=== PATIENT | male | born 1950 | race Caucasian/White ===

== ENCOUNTER 2017-09-17 09:24 | Emergency (ER) | payer OTHER ==
[~2017-09-17] VITALS: Ht 172.7 cm; Wt 80.7 kg
[~2017-09-17 09:24] MED LIST: ASPIRIN; LISINOPRIL; LOVASTATIN; PLAVIX; TOPROL XL; ZETIA
[2017-09-17] MEDS ORDERED: ASPI-1471 PO (09:39)
[2017-09-17] MEDS ORDERED: GLUC100026 PO (09:39)
[2017-09-17] MEDS ORDERED: PANT40TA65 PO (09:39)
[2017-09-17] MEDS ORDERED: ROSU5TAB8 PO (09:39)
[2017-09-17] MEDS ORDERED: POTA10CA40 PO (09:39)
[2017-09-17] MEDS ORDERED: SODI325T7 PO (09:39)
[2017-09-17] MEDS ORDERED: LR(*) 1000 ML BAG 1,000 ML IV ONE (10:18)
--- NOTE | 2017-09-17 10:18 | ER Report ---
History and Physical Time Seen By MD: 10:11 Hx. of Stated Complaint: PT REPORTS VOMITING SINCE 0300 THIS MORNING, REPORTS WEAKNESS, UNEASY STOMACH HPI/ROS CHIEF COMPLAINT: vomiting x2 HISTORY OF PRESENT ILLNESS: Patient is a 67-year-old male who presents emergency department after having 2 episodes of severe nausea followed by vomiting early this morning. 1st episode occurred right around 3 AM patient was out smoking a cigarette when he developed severe nausea sweating and vomiting. He denies any chest pain or shortness of breath. He had a recurring episode around 7 AM and currently he no longer nauseous and has no symptoms. He came to the emergency department at the behest of his who wanted him evaluated. REVIEW OF SYSTEMS: Constitutional: No fever, no chills. Eyes: No discharge. ENT: No sore throat. Cardiovascular: No chest pain, no palpitations. Respiratory: No cough, no shortness of breath. Gastrointestinal: No abdominal pain, nausea with vomiting no diarrhea Genitourinary: No hematuria. Musculoskeletal: No back pain. Skin: No rashes. Neurological: No headache. Allergies: Coded Allergies: codeine (Verified Allergy, Intermediate, RASH, 09/17/17) Home Meds Reported Medications Glucosamine Sulfate 2KCL (GLUCOSAMINE) 1,000 Mg Tablet, 1000 MG PO BID 09/17/17 Rosuvastatin Calcium (CRESTOR) 5 Mg Tablet, 5 MG PO QDAY 09/17/17 Pantoprazole Sodium (PANTOPRAZOLE SODIUM) 40 Mg Tablet.dr, 40 MG PO QDAY, TAB.SR 09/17/17 Sodium Bicarbonate (SODIUM BICARBONATE) 325 Mg Tablet, 325 MG PO TID 09/17/17 Potassium Chloride (POTASSIUM CHLORIDE) 10 Meq Capsule.er, 10 MEQ PO BID 09/17/17 Aspirin (ASPIR 81) 81 Mg Tablet.dr, 81 MG PO QDAY, TAB 09/17/17 Discontinued Reported Medications [Lovastatin] No Conflict Check 10/31/07 [Zetia] No Conflict Check 10/31/07 [Aspirin] No Conflict Check STOPPED PREOP 10/31/07 [Lisinopril] No Conflict Check 10/31/07 [Toprol Xl] No Conflict Check 10/31/07 [Plavix] No Conflict Check STOPPED PREOP 10/31/07 Past Medical/Surgical History Past medical history significant for hyper cholesterolemia, history gastroesophageal reflux disease; history of low potassium, history of OR in 2004 Smoking Status: Current: Every Day Smoker Constitutional Vital Sign - Last 24 Hours 09/17/17 09/17/17 09/17/17 09/17/17 09:25 09:31 09:39 09:54 Temp 98.8 Pulse 103 104 89 Resp 16 B/P (MAP) 120/94 120/94 (103) Pulse Ox 93 93 93 O2 Delivery Room Air 09/17/17 09/17/17 09/17/17 09/17/17 10:00 10:09 10:24 10:30 Pulse 100 102 B/P (MAP) 112/66 (81) 118/69 (85) Pulse Ox 92 92 09/17/17 09/17/17 09/17/17 09/17/17 10:39 10:54 11:00 11:09 Pulse 101 102 104 B/P (MAP) 113/60 (77) Pulse Ox 89 90 88 Intake and Output 09/17/17 09/17/17 09/18/17 15:00 23:00 07:00 Intake Total 1000 ml Balance 1000 ml Physical Exam General/Constitutional: Patient is awake, alert, nontoxic and in no acute respiratory distress. Head: Normocephalic and atraumatic. Eyes: Conjunctival clear, Pupils are equal and reactive to light. Extraocular muscles are intact and symmetrical. Sclera are clear and anicteric. Ears:External canals are clear. Tympanic membranes are clear with normal landmarks and light reflex. Nares: No rhinorrhea or bleeding. Turbinates are pink and moist. Oropharyngeal: Mucous membranes are moist. There is no pharyngeal erythema or exudate. There are no palatal petechiae. Uvula is midline and symmetrical. Neck: Supple, no adenopathy. Cardiovascular: Heart is regular rate and rhythm without audible murmurs, rubs or gallops. Pulmonary: Lungs are clear to auscultation bilaterally. There are no wheezes, rales, or rhonchi. Chest rise is symmetrical Abdomen: Soft, nontender, no guarding or peritoneal signs. Extremities: No gross deformities, No peripheral cyanosis. Able to move all 4 extremities. Neuro: Alert and oriented X3, Skin: No rashes, skin is warm dry and well perfused. Medical Decision Making Data Points Result Diagram: 09/17/1741 09/17/1741 Laboratory Hematology Test 09/17/17 00:00 09/17/17 09:41 Troponin I < 0.012 ng/ml Red Blood Count 5.14 M/uL (4.00-5.60) Mean Corpuscular Volume 93.7 fL (80.0-96.0) Mean Corpuscular Hemoglobin 32.0 pg (26.0-33.0) Mean Corpuscular Hemoglobin Concent 34.1 g/dL (32.0-36.0) Red Cell Distribution Width 14.6 % (11.5-14.5) Mean Platelet Volume 8.9 fL (7.2-11.1) Neutrophils (%) (Auto) 95.7 % (39.4-72.5) Lymphocytes (%) (Auto) 1.0 % (17.6-49.6) Monocytes (%) (Auto) 2.4 % (4.1-12.4) Eosinophils (%) (Auto) 0.4 % (0.4-6.7) Basophils (%) (Auto) 0.5 % (0.3-1.4) Nucleated RBC Relative Count (auto) 0.0 /100WBC Neutrophils # (Auto) 6.8 K/uL (2.0-7.4) Lymphocytes # (Auto) 0.1 K/uL (1.3-3.6) Monocytes # (Auto) 0.2 K/uL (0.3-1.0) Eosinophils # (Auto) 0.0 K/uL (0.0-0.5) Basophils # (Auto) 0.0 K/uL (0.0-0.1) Nucleated RBC Absolute Count (auto) 0.00 K/uL Sodium Level 139 mmol/L (137-145) Potassium Level 3.7 mmol/L (3.5-5.0) Chloride Level 106 mmol/L (98-107) Carbon Dioxide Level 18 mmol/L (22-30) Blood Urea Nitrogen 19 mg/dl (9-21) Creatinine 1.10 mg/dl (0.66-1.25) Glomerular Filtration Rate Calc > 60.0 Random Glucose 145 mg/dl (75-110) Calcium Level 10.2 mg/dl (8.4-10.2) Total Bilirubin 0.5 mg/dl (0.2-1.3) Aspartate Amino Transf (AST/SGOT) 22 U/L (0-35) Alanine Aminotransferase (ALT/SGPT) 25 U/L (0-56) Alkaline Phosphatase 72 U/L (0-126) Total Protein 7.5 gm/dl (6.3-8.2) Albumin 4.2 g/dl (3.5-5.0) Lipase 112 U/L (23-300) Chemistry Test 09/17/17 00:00 09/17/17 09:41 Troponin I < 0.012 ng/ml White Blood Count 7.1 k/uL (4.5-11.0) Red Blood Count 5.14 M/uL (4.00-5.60) Hemoglobin 16.5 g/dL (14.0-18.0) Hematocrit 48.2 % (42.0-52.0) Mean Corpuscular Volume 93.7 fL (80.0-96.0) Mean Corpuscular Hemoglobin 32.0 pg (26.0-33.0) Mean Corpuscular Hemoglobin Concent 34.1 g/dL (32.0-36.0) Red Cell Distribution Width 14.6 % (11.5-14.5) Platelet Count 198 K/uL (150-450) Mean Platelet Volume 8.9 fL (7.2-11.1) Neutrophils (%) (Auto) 95.7 % (39.4-72.5) Lymphocytes (%) (Auto) 1.0 % (17.6-49.6) Monocytes (%) (Auto) 2.4 % (4.1-12.4) Eosinophils (%) (Auto) 0.4 % (0.4-6.7) Basophils (%) (Auto) 0.5 % (0.3-1.4) Nucleated RBC Relative Count (auto) 0.0 /100WBC Neutrophils # (Auto) 6.8 K/uL (2.0-7.4) Lymphocytes # (Auto) 0.1 K/uL (1.3-3.6) Monocytes # (Auto) 0.2 K/uL (0.3-1.0) Eosinophils # (Auto) 0.0 K/uL (0.0-0.5) Basophils # (Auto) 0.0 K/uL (0.0-0.1) Nucleated RBC Absolute Count (auto) 0.00 K/uL Glomerular Filtration Rate Calc > 60.0 Calcium Level 10.2 mg/dl (8.4-10.2) Total Bilirubin 0.5 mg/dl (0.2-1.3) Aspartate Amino Transf (AST/SGOT) 22 U/L (0-35) Alanine Aminotransferase (ALT/SGPT) 25 U/L (0-56) Alkaline Phosphatase 72 U/L (0-126) Total Protein 7.5 gm/dl (6.3-8.2) Albumin 4.2 g/dl (3.5-5.0) Lipase 112 U/L (23-300) EKG/Imaging EKG Interpretation EKG shows sinus rhythm with a ventricular rate of 99 bpm. There is poor R-wave progression but no evidence of ST segment abnormalities. Monitor Interpretation: Normal Sinus Rhythm ED Course/Re-evaluation ED Course 09/17/2017 10:32:33 am patient with 2 episodes of nausea associated with vomiting. My concern is the prior history of OR in the remote past. Even though this is an atypical presentation for myocardial ischemia as there was no chest pain or shortness of breath my concern is that the initial symptom occurred while smoking was associated with sweating plan at this time will be a abdominal workup but we'll add a troponin and EKG. She remained symptom-free at this time Re-evaluation 09/17/2017 11:33:43 am workup in the emergency department reveals normal blood work troponin is negative EKG is normal. Plan will be discharge home patient remained symptom-free at this time Decision to Disposition Date: Sep 17, 2017 Decision to Disposition Time: 11:33 Depart Departure Latest Vital Signs Vital Signs Date Time Temp Pulse Resp B/P (MAP) Pulse Ox O2 Delivery O2 Flow Rate FiO2 09/17/17 11:09 104 88 09/17/17 11:00 113/60 (77) 09/17/17 09:25 98.8 16 Room Air Impression: Primary Impression: Vomiting Condition: Improved Disposition: HOME OR SELF-CARE New Scripts Ondansetron Hcl (ZOFRAN) 4 Mg Tablet 4 MG PO Q8H for Nausea, #15 TAB 0 Refills Prov: VENKATESH REYNA MD 09/17/17 Departure Forms: ER Transition Record, Medications Reconciliation, Patient Portal Information Patient Instructions: Acute Nausea and Vomiting (ED) Problem Qualifiers Primary Impression: Vomiting Vomiting type: unspecified Vomiting Intractability: non-intractable Nausea presence: with nausea Qualified Codes: R11.2 - Nausea with vomiting, unspecified VENKATESH REYNA MD Sep 17, 2017 10:18
[2017-09-17] MEDS ORDERED: ONDANSETRON 4 MG/2 ML VIAL IVP ONE (10:20)
[2017-09-17 10:31] LABS: PLATELET COUNT, AUTOMATED 198 K/uL (150-450)
--- NOTE | 2017-09-17 10:36 | EKG ---
FACILITY: [facility] [place]IENT NAME: MICHELLE ZHENG : [id number] MR: [id number] V: [id number] EXAM DATE: ORDERING PHYSICIAN: VENKATESH REYNA TECHNOLOGIST: ELISE Collins Reason : DIZZY Blood Pressure : / mmHG Vent. Rate : 099 BPM Atrial Rate : 099 BPM P-R Int : 150 ms QRS Dur : 086 ms QT Int : 348 ms P-R-T Axes : 063 078 029 degrees QTc Int : 446 ms Sinus rhythm Small Q waves inferiorly Decreased R wave progression anteriorly Abnormal ECG No previous ECGs available Confirmed by MULU ELIAS ([id number] on 09/17/2017 6:32:05 PM Referred By: MARIBELL Confirmed By:MULU ELIAS
[2017-09-17 11:30] VITALS: BP 109/63
[2017-09-17] MEDS ORDERED: ONDA4TAB97 PO (11:35)
== END 2017-09-17 11:43 | disposition home or self-care (01) ==
LOC: ER 09:55
DX: R11.2 Nausea with vomiting, unspecified (principal); I25.2 Old myocardial infarction; E78.00 Pure hypercholesterolemia, unspecified; K21.9 Gastro-esophageal reflux disease without esophagitis; F17.210 Nicotine dependence, cigarettes, uncomplicated
CPT/HCPCS: 83690; 84484; 85025; 93005; 96361; 96374; 99284; J2405; J7120; 82040; 82247; 82310; 82374; 82435; 82565; 82947; 84075; 84132; 84155; 84295; 84450; 84460; 84520